=== PATIENT | male | born 1940 | race Caucasian/White ===

== ENCOUNTER 2020-04-14 14:37 | Emergency (ER) | payer OTHER ==
[~2020-04-14] VITALS: Ht 180.3 cm; Wt 91.6 kg
[2020-04-14 14:49] VITALS: Ht 180.3 cm; Wt 91.6 kg
[2020-04-14 17:19] LABS: CALCIUM 8.9 mg/dL (8.5-10.1); CARBON DIOXIDE 24.3 mmol/L (21-32); CHLORIDE SERUM 102 mmol/L (98-107); CREATININE SERUM 1.1 mg/dL (0.7-1.3); GLUCOSE SERUM 103 mg/dL (74-106); POTASSIUM SERUM 4.1 mmol/L (3.5-5.1); SODIUM SERUM 138 mmol/L (136-145)
[2020-04-14 17:24] LABS: ALBUMIN 3.4 g/dL (3.4-5.0); ALKALINE PHOSPHATASE 183 U/L (46-116); ALT/SGPT 70 U/L (16-63); AST/SGOT 30 U/L (15-37); BILIRUBIN TOTAL 0.6 mg/dL (0.20-1.00); TOTAL PROTEIN, SERUM 7.5 g/dL (6.4-8.2)
[2020-04-14 17:45] LABS: BASOPHIL % 1.7 % (0.2-1.5); PLATELET COUNT 249 x10^3mcL (152-348)
[2020-04-14 17:47] LABS: RED CELL DISTRIBUTION WIDTH 14.6 % (12.1-16.2)
[2020-04-14 18:31] VITALS: BP 146/63
== END 2020-04-14 18:31 | disposition home or self-care (01) ==
LOC: ED 14:37
PROVIDERS: Emergency Medicine
DX: I10 Essential (primary) hypertension (principal); Z00.01 Encounter for general adult medical examination with abnormal findings; Z13.9 Encounter for screening, unspecified